=== PATIENT | female | born 1955 | race Hispanic/Latino ===

== ENCOUNTER 2021-02-28 18:31 | Emergency (ER) | payer SELFPAY ==
--- NOTE | ~2021-02-28 | XR_ITS ---
EXAMINATION: XR chest 1V portable EXAM DATE: 02/28/2021 22:15 INDICATION: Chronic bilateral arm pain, night sweats. TECHNIQUE: Frontal and lateral projections of the chest obtained and reviewed. There is no prior artie dy for comparison. FINDINGS: Small amount of left apical capping. The lungs are clear. There are no pleural effusions. Cardiac silhouette is prominent but magnified on this AP technique. There is pulmonary vascular co ngestion. There is no pneumothorax suspected. The bones and soft tissues are unremarkable. IMPRESSION: Pulmonary vascular congestion. Reviewed, dictated and finalized at location A.
[2021-02-28 18:47] VITALS: BP 105/85; PULSE 66; RESP 18; TEMP 36.1; O2SAT 96
[2021-02-28] MEDS: SODIUM CHLORIDE 0.9% IV 1,000 ML 999 ML IV CONT (21:55)
[2021-02-28 22:16] LABS: Glucose Point of Care 339 (65-105)
[2021-02-28 22:23] LABS: Basophils Percent Auto 0.5 % (0.2-1.2); Eosinophils Absolute Auto 0.4 K/mm3 (0-0.3); Eosinophils Percent Auto 5.8 % (0-4.4); Hematocrit 39.9 % (37.0-47.0); Hemoglobin 14.3 g/dL (12.0-15.0); Immature Granulocyte Absolute 0.01 K/mm3 (0.00-0.031); Immature Granulocyte Percent A 0.2 % (0-0.5); Lymphocytes Percent Auto 42.2 % (18.3-44.2); Mean Corpuscular HGB Conc 35.8 g/dl (32-36); Mean Corpuscular Hemoglobin 32.9 pg (26-34); Mean Corpuscular Volume 91.7 fl (80-100); Mean Platelet Volume 11.3 fl (7.4-10.4); Monocytes Absolute Auto 0.6 K/mm3 (0.1-0.6); Monocytes Percent Auto 8.9 % (2.6-8.5); Neutrophils Absolute Auto 2.6 K/mm3 (1.3-6.7); Neutrophils Percent Auto 42.4 % (45.5-73.1); Platelet Count Result 169 k/mm3 (150-375); Red Blood Count 4.35 M/mm3 (4.2-5.4); Red Cell Distribution Width 11.7 % (11.5-14.5); White Blood Count 6.2 K/mm3 (4.5-10.0)
[2021-02-28 22:35] LABS: Alanine Aminotransferase 41 U/L (4-35); Albumin Level 4.4 g/dL (3.5-5.1); Alkaline Phosphatase 203 U/L (38-126); Anion Gap 8 mmol/L (8-16); Aspartate Amino Transferase 40 U/L (14-36); Bilirubin,Total 0.3 mg/dL (0.2-1.3); Blood Urea Nitrogen 17 mg/dL (7-17); Calcium 9.7 mg/dL (8.4-10.2); Carbon Dioxide 25 mmol/L (22-30); Chloride 102 mmol/L (98-107); Estimated CRCL calculation 107 ml/min; Estimated Glomerular Filt Rate > 60; Glucose 348 mg/dL (65-105); Magnesium 1.8 mg/dL (1.6-2.3); Potassium 4.2 mmol/L (3.4-5.0); Sodium 135 mmol/L (137-145)
[2021-02-28 23:32] VITALS: BP 145/73; PULSE 63; RESP 20; O2SAT 95
[2021-02-28 23:32] LABS: Glucose Point of Care 280 (65-105)
[2021-02-28] MEDS: KETOROLAC 15 MG/ML VIAL (*BKC) IV PUSH (23:45)
--- NOTE | 2021-03-01 00:02 | ED.GENADULT ---
HPI - General Adult General Chief complaint: Recheck/Abnormal Lab/Rx Stated complaint: right arm pain Time Seen by Provider: 02/28/21 21:47 History of Present Illness HPI narrative: Patient 65-year-old female who presents to the emergency department with chief complaint of pain in joints. Patient reports that for the last several days she has been aching in all of her joints worse in the upper extremities and states that her shoulders and elbows are hurting bilaterally. Patient states that she was seen at urgent care and they found that her blood sugars were elevated and sent the patient to the emergency department for further evaluation. Patient denies chest pain denies shortness of breath denies fever Review of Systems Review of Systems: Narrative: A 10 system review of systems was completed on the patient and is negative except for what is stated in the HPI. Nursing and ancillary documentation was reviewed. [facility] Social History Social History Gender identity (if verbalized by the patient): Female Comments Patient has history of diabetes that she takes oral hypoglycemics for Exam Narrative: Exam Narrative: GENERAL: Well-appearing, well-nourished, and in no acute distress. HEAD: Normocephalic, atraumatic. EYES: PERRLA and EOMI. ENT: Nares clear, no rhinorrhea or epistaxis. Mucous membranes moist. NECK: Supple. CHEST: Clear to auscultation. No respiratory distress. HEART: Regular rate and rhythm. No murmur heard. Normal peripheral pulses. ABDOMEN: Soft, nontender, nondistended, normal active bowel sounds. EXTREMITIES: Normal range of motion. No edema. SKIN: Warm, dry, no rash. NEURO: No focal deficits. Alert and oriented x3. PSYCH: Normal mood and affect. Course Course Emergency Course: Patient received a liter of normal saline and received a dose of Toradol. Patient's pain was improved to where she now only has pain in the right upper extremity that is reproduced. Patient's blood sugar has come down to the 200s. Vital Signs Vital signs: Vital Signs Temperature 36.1 C L 02/28/21 18:47 Pulse Rate 66 02/28/21 18:47 Respiratory Rate 18 02/28/21 18:47 Blood Pressure 105/85 02/28/21 18:47 Pulse Oximetry 96 02/28/21 18:47 Temperature 36.1 C L 02/28/21 18:47 Pulse Rate 63 02/28/21 23:32 Respiratory Rate 20 02/28/21 23:32 Blood Pressure 145/73 H 02/28/21 23:32 Pulse Oximetry 95 02/28/21 23:32 Medical Decision Making Vital Signs Vital Signs: Vital Signs Temperature 36.1 C L 02/28/21 18:47 Pulse Rate 66 02/28/21 18:47 Respiratory Rate 18 02/28/21 18:47 Blood Pressure 105/85 02/28/21 18:47 Pulse Oximetry 96 02/28/21 18:47 Temperature 36.1 C L 02/28/21 18:47 Pulse Rate 63 02/28/21 23:32 Respiratory Rate 20 02/28/21 23:32 Blood Pressure 145/73 H 02/28/21 23:32 Pulse Oximetry 95 02/28/21 23:32 Lab Data Result diagrams: 02/28/21 22:18 02/28/21 22:18 Labs: Lab Results 02/28/21 02/28/21 02/28/21 Range/Units 22:13 22:18 22:18 WBC 6.2 (4.5-10.0) K/mm3 RBC 4.35 (4.2-5.4) M/mm3 Hgb 14.3 (12.0-15.0) g/dL Hct 39.9 (37.0-47.0) % MCV 91.7 (80-100) fl MCH 32.9 (26-34) pg MCHC 35.8 (32-36) g/dl RDW 11.7 (11.5-14.5) % Plt Count 169 (150-375) k/mm3 MPV 11.3 H (7.4-10.4) fl Immature Gran % (Auto) 0.2 (0-0.5) % Neut % (Auto) 42.4 L (45.5-73.1) % Lymph % (Auto) 42.2 (18.3-44.2) % [place] % (Auto) 8.9 H (2.6-8.5) % Eos % (Auto) 5.8 H (0-4.4) % Baso % (Auto) 0.5 (0.2-1.2) % Lymph # (Auto) 2.60 (0.9-3.2) K/mm3 [place] # (Auto) 0.6 (0.1-0.6) K/mm3 Eos # (Auto) 0.4 H (0-0.3) K/mm3 Baso # (Auto) 0.0 (0.0-0.1) K/mm3 Abs Immat Gran (auto) 0.01 (0.00-0.031) K/mm3 Absolute Neuts (auto) 2.6 (1.3-6.7) K/mm3 Absolute Nucleated RBC 0.0 (0.0-0.012) K/mm3 Nucleated RBC
[2021-03-01 00:56] VITALS: BP 122/71; PULSE 69; RESP 18; O2SAT 98
== END 2021-03-01 00:59 | disposition home or self-care (01) ==
PROVIDERS: Emergency Provider Emergency Medicine; PCP Physician Assistant
DX: M25.50 Pain in unspecified joint (principal); E11.65 Type 2 diabetes mellitus with hyperglycemia; Z79.84 Long term (current) use of oral hypoglycemic drugs
CPT/HCPCS: 36415; 71045; 80053; 82948; 83735; 85025; 96361; 96374; 99284; J1885; J7030

== ENCOUNTER 2022-01-05 08:38 | Emergency (ER) | payer MEDICAID, SELFPAY ==
[2022-01-05 08:43] VITALS: BP 145/79; PULSE 100; RESP 18; TEMP 37.2; O2SAT 94
[2022-01-05 09:48] LABS: Basophils Percent Auto 0.3 % (0.2-1.2); Eosinophils Absolute Auto 0.1 K/mm3 (0-0.3); Eosinophils Percent Auto 0.7 % (0-4.4); Hematocrit 45.2 % (37.0-47.0); Hemoglobin 15.9 g/dL (12.0-15.0); Immature Granulocyte Absolute 0.03 K/mm3 (0.00-0.031); Immature Granulocyte Percent A 0.3 % (0-0.5); Lymphocytes Absolute Auto 1.06 K/mm3 (0.9-3.2); Mean Corpuscular HGB Conc 35.2 g/dl (32-36); Mean Corpuscular Hemoglobin 33.2 pg (26-34); Mean Corpuscular Volume 94.4 fl (80-100); Mean Platelet Volume 11.6 fl (7.4-10.4); Monocytes Absolute Auto 0.6 K/mm3 (0.1-0.6); Monocytes Percent Auto 4.7 % (2.6-8.5); Neutrophils Absolute Auto 10.1 K/mm3 (1.3-6.7); Platelet Count Result 163 k/mm3 (150-375); Red Blood Count 4.79 M/mm3 (4.2-5.4); Red Cell Distribution Width 11.1 % (11.5-14.5); White Blood Count 11.8 K/mm3 (4.5-10.0)
[2022-01-05] MEDS: ONDANSETRON INJ 4 MG/2 ML VIAL IV PUSH (09:49)
[2022-01-05 09:53] LABS: Add Urine Microscopic? YES; Appearance Urine Clear (Clear); Bilirubin Urine Negative (Negative); Blood Urine Negative (Negative); Color Urine Yellow (Yellow); Glucose Urine UA 3+ mg/dL (Negative); Ketones Urine 2+ mg/dL (Negative); Leukocyte Esterase Ur Negative LEU/UL (Negative); Mucus Urine Rare /lpf; Nitrate Urine Negative (Negative); Protein Urine 1+ mg/dL (Negative); Squamous Epithelial Cell Urine Rare /hpf (Few); Urobilinogen Urine Negative mg/dL (<2.0); WBC Urine 0-3 /hpf
[2022-01-05 09:54] LABS: Specific Grav Ur 1.037 (1.001-1.035)
[2022-01-05 09:56] LABS: Alanine Aminotransferase 40 U/L (4-35); Albumin Level 4.4 g/dL (3.5-5.1); Alkaline Phosphatase 141 U/L (38-126); Anion Gap 10 mmol/L (8-16); Aspartate Amino Transferase 29 U/L (14-36); Bilirubin,Total 0.7 mg/dL (0.2-1.3); Blood Urea Nitrogen 12 mg/dL (7-17); Calcium 8.5 mg/dL (8.4-10.2); Carbon Dioxide 22 mmol/L (22-30); Chloride 99 mmol/L (98-107); Estimated Glomerular Filt Rate > 60; Glucose 378 mg/dL (65-110); Lipase 77 U/L (23-300); Potassium 4.1 mmol/L (3.4-5.0); Sodium 131 mmol/L (137-145)
--- NOTE | 2022-01-05 10:45 | ED.ABDPAIN ---
HPI - Abdominal Pain General Chief Complaint: Abdominal Pain Stated Complaint: vomiting, abdominal pain Time Seen by Provider: 01/05/22 08:43 History of Present Illness HPI narrative: Patient is a 66-year-old female who presents ER with an upset stomach. She has had emesis several times. One time may have been related to taking pain medication. She recently had tooth #32 extracted from her face yesterday. She thinks she may have swallowed a lot of blood. She said no urinary frequency urgency or dysuria. No diarrhea or passage of dark black stool. No reflux into the back of her throat. No radiation to her back. Cannot describe any aggravating or alleviating factors. Related Data Allergies Allergy/AdvReac Type Severity Reaction Status Date / Time No Known Allergies Allergy Verified 01/05/22 09:18 Review of Systems Review of Systems: All systems reviewed & are unremarkable except as noted in HPI and below Constitutional: Constitutional: Denies chills, Denies fever(s) and Denies weakness ENT: Denies nasal congestion and Denies sore throat Cardiovascular: Cardiovascular: Denies chest pain, Denies rapid heart rate and Denies radiating jaw, neck or arm pain Respiratory: Respiratory: Denies cough and Denies dyspnea Gastrointestinal: Gastrointestinal: Reports abdominal pain, Denies heartburn, Denies diarrhea, Reports nausea and Reports vomiting PMFSH Past Medical History Medical History (Updated 01/05/22 @ 13:25 by Sebas Forman MD) Diabetes Surgical History Surgical History (Updated 01/05/22 @ 10:49 by Sebas Forman MD) No pertinent past surgical history Social History Social History Gender identity (if verbalized by the patient): Female Exam Narrative: GENERAL: Well-appearing, obese, and in no acute distress. HEAD: Normocephalic, atraumatic. ENT: Mucous membranes moist. Clot present at tooth extraction site in the right lower jaw without bleeding or drainage. No mandibular swelling or submandibular swelling. NECK: Supple. CHEST: Clear to auscultation. No respiratory distress. HEART: Regular rate and rhythm. Normal peripheral pulses. ABDOMEN: Soft, nontender, nondistended, normal active bowel sounds. EXTREMITIES: Normal range of motion. No edema. SKIN: Warm, dry, no rash. NEURO: Alert and oriented x3. Course Course Emergency Course: Patient resting comfortably. Unremarkable work-up. Discharge home. Vital Signs Vital signs: Vital Signs Temperature 99 F 01/05/22 08:43 Pulse Rate 100 01/05/22 08:43 Respiratory Rate 18 01/05/22 08:43 Blood Pressure 145/79 H 01/05/22 08:43 Pulse Oximetry 94 01/05/22 08:43 Temperature 99 F 01/05/22 08:43 Pulse Rate 79 01/05/22 11:30 Respiratory Rate 18 01/05/22 11:30 Blood Pressure 125/79 01/05/22 11:30 Pulse Oximetry 99 01/05/22 11:30 MDM - Abdominal Pain Lab Data Result diagrams: 01/05/22 09:27 01/05/22 09:27 Labs: Lab Results 01/05/22 01/05/22 01/05/22 Range/Units 09:27 09:27 09:27 WBC 11.8 H (4.5-10.0) K/mm3 RBC 4.79 (4.2-5.4) M/mm3 Hgb 15.9 H (12.0-15.0) g/dL Hct 45.2 (37.0-47.0) % MCV 94.4 (80-100) fl MCH 33.2 (26-34) pg MCHC 35.2 (32-36) g/dl RDW 11.1 L (11.5-14.5) % Plt Count 163 (150-375) k/mm3 MPV 11.6 H (7.4-10.4) fl Immature Gran % (Auto) 0.3 (0-0.5) % Neut % (Auto) 85.0 H (45.5-73.1) % Lymph % (Auto) 9.0 L (18.3-44.2) % [place] % (Auto) 4.7 (2.6-8.5) % Eos % (Auto) 0.7 (0-4.4) % Baso % (Auto) 0.3 (0.2-1.2) % Lymph # (Auto) 1.06 (0.9-3.2) K/mm3 [place] # (Auto) 0.6 (0.1-0.6) K/mm3 Eos # (Auto) 0.1 (0-0.3) K/mm3 Baso # (Auto) 0.0 (0.0-0.1) K/mm3 Abs Immat Gran (auto) 0.03 (0.00-0.031) K/mm3 Absolute Neuts (auto) 10.1 H (1.3-6.7) K/mm3 Absolute Nucleated RBC 0.0 (0.0-0.012) K/mm3 Nucleated
[2022-01-05 11:30] VITALS: BP 125/79; PULSE 79; RESP 18; O2SAT 99
[2022-01-05 13:45] VITALS: BP 133/74; PULSE 82; RESP 19; O2SAT 98
== END 2022-01-05 13:50 | disposition home or self-care (01) ==
PROVIDERS: Emergency Provider Emergency Medicine; PCP Physician Assistant
DX: R10.13 Epigastric pain (principal); E11.9 Type 2 diabetes mellitus without complications; Z98.818 Other dental procedure status
CPT/HCPCS: 36415; 80053; 81001; 83690; 85025; 96374; 99284; J2405